=== PATIENT | male | born 1990 | race Caucasian/White ===

== ENCOUNTER 2019-11-10 03:16 | Emergency (ER) | payer OTHER, MEDICAID ==
[~2019-11-10] VITALS: Ht 172.7 cm; Wt 84.4 kg
[2019-11-10 03:22] VITALS: Ht 172.7 cm; Wt 84.4 kg
[2019-11-10 05:36] VITALS: BP 164/78
== END 2019-11-10 05:36 | disposition home or self-care (01) ==
LOC: ED 03:16
DX: S16.1XXA Strain of muscle, fascia and tendon at neck level, initial encounter (principal); S80.01XA Contusion of right knee, initial encounter; R51 Headache; I10 Essential (primary) hypertension; Z98.890 Other specified postprocedural states; V43.52XA Car driver injured in collision with other type car in traffic accident, initial encounter; Y93.I9 Activity, other involving external motion; Y92.488 Other paved roadways as the place of occurrence of the external cause; Y99.8 Other external cause status
CPT/HCPCS: J1885